=== PATIENT | female | born 1955 | race African-American/Black ===

== ENCOUNTER → 2024-07-08 11:12 | Outpatient (REF) | payer MEDICARE, SELFPAY | LOC: HWRCS 11:12 | PROVIDERS: ATTENDING PHYSICIAN Nurse Practitioner; FAMILY PHYSICIAN Family Medicine | DX: I10 Essential (primary) hypertension (principal); R60.0 Localized edema | CPT/HCPCS: 93306 ==

== ENCOUNTER 2025-04-05 11:53 | Emergency (ER) | payer MEDICARE, SELFPAY ==
[2025-04-05 11:59] VITALS: BP 153/80
[2025-04-05 12:38] LABS: Hematocrit 37.9 % (37.0-47.0); Hemoglobin 11.9 g/dL (12.0-16.0); Mean Corp Hgb Conc. 31.4 g/dL (33.0-37.0); Mean Corpuscular Volume 68.3 fL (81.0-99.0); Nucleated Red Blood Cells % 0 %; Platelet Count 374 10^3/uL (130-400); Red Cell Dist. Width 17.5 % (11.5-14.5)
[2025-04-05 13:04] LABS: ALT (SGPT) 20 U/L (0-35); AST (SGOT) 23 U/L (14-36); Albumin 4.6 g/dl (3.5-5.0); Alkaline Phosphatase 139 U/L (38-126); Blood Urea Nitrogen 12 mg/dl (7-17); Calcium 9.8 mg/dl (8.4-10.2); Carbon Dioxide 22 mmol/L (22-30); Chloride 108 mmol/L (98-107); Glucose 144 mg/dl (70-99); Potassium 4.1 mmol/L (3.5-5.1); Sodium 141 mmol/L (135-145); Total Protein 8.0 g/dl (6.3-8.2); eGFR 49.31
--- NOTE | 2025-04-05 13:29 | ED.GENMED ---
History of Present Illness
<Alphonso Kaur MD, Resident - Last Filed: 04/05/25 15:57>
General
Chief Complaint: Abdominal Pain
Source: patient
Exam Limitations: none
Time Seen by Provider: 04/05/25 13:04
Nursing documentation reviewed up to this point in time: agreed with
History of Present Illness
History of Present Illness:
This is a 69-year-old female with known past medical history coronary artery disease, hypertension, hyperlipidemia, diverticulosis, history of diverticulitis, history of colitis, history of bowel obstruction, IBS, history of renal infection,
diabetes, presenting in the emergency department with complaints of abdominal pain. She informed me that on Saturday her blood sugar was on the lower side and she took some candy (smarties), after which she had a large watery bowel movement and
eventually experienced abdominal pain which spreads across the middle of her belly. She also reports some associated nausea but denies vomiting. She informed me that diarrhea resolved on its own however abdominal pain persist. She rates the pain
as 8/10. Pain increases in intensity with movement and certain upon lying down. She also admits to have urinary frequency but denies dysuria or any other urinary symptoms.
Patient admits that because of abdominal pain she did not eat or drink anything yesterday or today.
Denies any other changes in medications or medical conditions recently.
Past History
<Alphonso Kaur MD, Resident - Last Filed: 04/05/25 15:57>
Past History
ED Past Medical History: CAD, HTN, Hypercholesterolemia, NIDDM and Other (Diverticulitis, irritable bowel syndrome, history of bowel obstruction)
ED Past Surgical History: Appendectomy, Cardiac (Angioplasty with 5 stents), Gynecological (Tubal ligation) and Other (History of tubal ligation)
Social History
Tobacco: Non-smoker
Alcohol: None
Drug: None
Personal:
Living: with family
Employment: Employed
Family History
Family History: Diabetes and Hypertension
Review of Systems
<Alphonso Kaur MD, Resident - Last Filed: 04/05/25 15:57>
Review of Systems
Allergies reviewed?: Yes
All Other Systems: ROS reviewed and negative except as documented in HPI and ROS
Constitutional: Reports no symptoms
EENT: Reports no symptoms
Respiratory: Reports no symptoms
Cardiac: Reports no symptoms
ABD/GI: Reports abdominal pain and nausea; Denies vomiting or diarrhea
: Reports frequency; Denies dysuria, incontinence or difficulty voiding
Musculoskeletal: Reports no symptoms
Skin: Reports no symptoms
Neurological: Reports no symptoms
Endocrine: Reports no symptoms
Hematologic/Lymphatic: Reports no symptoms
Psychiatric: Reports no symptoms
Phy Exam
<Alphonso Kaur MD, Resident - Last Filed: 04/05/25 15:57>
General Physical Exam
General Presentation: well appearing and mild distress
General age: appears stated age
General Skin: warm
General Habitus: normal
General Mental: alert
Cardiovascular Exam
Cardiovascular Exam: regular rate/rhythm, no edema and no murmur
Pulmonary Exam
Pulmonary Exam: lungs clear, no respiratory distress, no crackles and no cough
Gastrointestinal Exam
Gastrointestinal Exam: normal bowel sounds, soft, no pulsatile mass, no cva tenderness and tender (Epigastric and umbilical)
Musculoskeletal Exam
Musculoskeletal Exam: full ROM
Course
<Alphonso Kaur MD, Resident - Last Filed: 04/05/25 15:57>
Orders/Labs/Results
Orders:
Orders
04/05/25 12:29
Complete Blood Count/With Diff Urgent
Comprehensive Metabolic Panel Urgent
Lipase Urgent
04/05/25 13:27
CT Abd/pelvis W Iv Cont Urgent
Comment:
Reason For Exam: abdominal pain
04/05/25 13:29
0.9% Sodium Chloride 1000 ml [Nss] 1,000 ml IV BOLUS
Famotidine [Pepcid] 20 mg IV NOW STA
Morphine Sulfate 2 mg IV NOW STA
Ondansetron Injectable [Zofran] 4 mg IV NOW STA
04/05/25 13:45
Urinalysis Reflex To Culture Urgent
Date Specimen was Collected: 04/05/25
Time Specimen was Collected: 13:41
Urine Microscopic Reflex Cult Urgent
04/05/25 15:32
Encourage PO Hydration-Treatme ONCE
Abnormal Lab Results
04/05/25 04/05/25
12:29 13:45
WBC 12.9 H 10^3/uL
(4.8-10.8)
RBC 5.55 H 10^6/uL
(4.20-5.40)
Hgb 11.9 L g/dL
(12.0-16.0)
MCV 68.3 L fL
(81.0-99.0)
MCH 21.4 L pg
(27.0-31.0)
MCHC 31.4 L g/dL
(33.0-37.0)
RDW 17.5 H %
(11.5-14.5)
Absolute Neuts (auto) 10.2 H 10^3/uL
(1.4-6.5)
Absolute Monos (auto) 1.0 H 10^3/uL
(0.1-0.6)
Neutrophils % 78.8 H %
(42.2-75.2)
Lymphocytes % 12.2 L %
(20.5-51.1)
Chloride 108 H mmol/L
(98-107)
Creatinine 1.2 H mg/dL
(0.6-1.0)
Glucose 144 H mg/dl
(70-99)
Alkaline Phosphatase 139 H U/L
(38-126)
Lipase 337 H U/L
(23-300)
Urine Ketones 2+ A
(Negative)
Ur Occult Blood Reflex 2+ A
(Negative)
Urine Bacteria (Reflex) Few A
(Negative)
Urine Glucose 1+ A
(Negative)
Urine Albumin (Reflex) 3+ A
(Neg - Trace)
04/05/25 12:29
04/05/25 12:29
Vital Signs
Initial and Last Documented VS:
Initial Vital Signs
Temp Pulse Resp BP Pulse Ox
98.0 F 57 20 153/80 99
04/05/25 11:59 04/05/25 11:59 04/05/25 11:59 04/05/25 11:59 04/05/25 11:59
Last Documented Vital Signs
Temp Pulse Resp BP Pulse Ox
98.0 F 57 20 153/80 99
04/05/25 11:59 04/05/25 11:59 04/05/25 11:59 04/05/25 11:59 04/05/25 13:29
Isadoralt;Lizett Cowart, - Last Filed: 04/05/25 16:04>
Orders/Labs/Results
Orders:
Orders
04/05/25 12:29
Complete Blood Count/With Diff Urgent
Comprehensive Metabolic Panel Urgent
Lipase Urgent
04/05/25 13:27
CT Abd/pelvis W Iv Cont Urgent
Comment:
Reason For Exam: abdominal pain
04/05/25 13:29
0.9% Sodium Chloride 1000 ml [Nss] 1,000 ml IV BOLUS
Famotidine [Pepcid] 20 mg IV NOW STA
Morphine Sulfate 2 mg IV NOW STA
Ondansetron Injectable [Zofran] 4 mg IV NOW STA
04/05/25 13:45
Urinalysis Reflex To Culture Urgent
Date Specimen was Collected: 04/05/25
Time Specimen was Collected: 13:41
Urine Microscopic Reflex Cult Urgent
04/05/25 15:32
Encourage PO Hydration-Treatme ONCE
Abnormal Lab Results
04/05/25 04/05/25
12:29 13:45
WBC 12.9 H 10^3/uL
(4.8-10.8)
RBC 5.55 H 10^6/uL
(4.20-5.40)
Hgb 11.9 L g/dL
(12.0-16.0)
MCV 68.3 L fL
(81.0-99.0)
MCH 21.4 L pg
(27.0-31.0)
MCHC 31.4 L g/dL
(33.0-37.0)
RDW 17.5 H %
(11.5-14.5)
Absolute Neuts (auto) 10.2 H 10^3/uL
(1.4-6.5)
Absolute Monos (auto) 1.0 H 10^3/uL
(0.1-0.6)
Neutrophils % 78.8 H %
(42.2-75.2)
Lymphocytes % 12.2 L %
(20.5-51.1)
Chloride 108 H mmol/L
(98-107)
Creatinine 1.2 H mg/dL
(0.6-1.0)
Glucose 144 H mg/dl
(70-99)
Alkaline Phosphatase 139 H U/L
(38-126)
Lipase 337 H U/L
(23-300)
Urine Ketones 2+ A
(Negative)
Ur Occult Blood Reflex 2+ A
(Negative)
Urine Bacteria (Reflex) Few A
(Negative)
Urine Glucose 1+ A
(Negative)
Urine Albumin (Reflex) 3+ A
(Neg - Trace)
04/05/25 12:29
04/05/25 12:29
Vital Signs
Initial and Last Documented VS:
Initial Vital Signs
Temp Pulse Resp BP Pulse Ox
98.0 F 57 20 153/80 99
04/05/25 11:59 04/05/25 11:59 04/05/25 11:59 04/05/25 11:59 04/05/25 11:59
Last Documented Vital Signs
Temp Pulse Resp BP Pulse Ox
98.0 F 57 20 153/80 99
04/05/25 11:59 04/05/25 11:59 04/05/25 11:59 04/05/25 11:59 04/05/25 13:29
<Alphonso Kaur MD, Resident - Last Filed: 04/05/25 15:57>
MDM/Problems Addressed
Differential Diagnosis Includes:
Viral gastritis vs Colitis vs pancreatitis vs diverticulitis vs UTI vs less likely renal colic vs less likely biliary colic
MDM/Problems Addressed:
Will get CBC, CMP, lipase.
CBC with leukocytosis of 12.9. CMP with creatinine of 1.2(around baseline). Lipase pending.
Will get CT abdomen/pelvis with IV contrast.
1 L NS bolus.
IV Meds: 4 mg Zofran, Pepcid 20 mg, morphine 2mg.
update: Lipase elevated to 337, UA with 2+ ketones, 2+ urine occult blood, few bacteria, 3+ urine albumin.
Patient feeling significant improvement in pain and resting comfortably in bed.
Will await the CT results for further disposition.
update:
CT shows mild diverticulosis. No evidence of acute diverticulitis. No acute inflammatory process within the abdominal pelvis. No evidence of bowel obstruction. No obstructive uropathy. Renal cyst with slight increase size. Mild fatty
infiltration of the liver. There are some tiny nodules at the right lung base which have been seen previously and have remained stable, supporting a benign etiology.
will trial PO.
Patient unable to follow-up with solid and liquid without any pain, nausea. Patient seen with patient to discharge home.recommended follow-up with PCP within 1 week.
She is aware if she develops any fevers or chills, any new symptoms, or any worsening symptoms she should come back. She voices understanding
Chronic conditions affecting care: DM, HTN and CAD
<Alphonso Kaur MD, Resident - Last Filed: 04/05/25 15:57>
*Pulse Oximetry
SaO2: 99
Oxygen Mode of Delivery: Room air
Patient hypoxic: no
*Critical Care Note
Total Time (30-74mins, 75-104mins- exclusive of procedures): Not Applicable
ED Attending Note
<Alphonso Kaur MD, Resident - Last Filed: 04/05/25 15:57>
-
Portions of this chart may have been created with voice recognition software.� Occasional wrong word or��sound alike� substitutions may have occurred due to the inherent limitations of voice recognition software.
<Lizett Cowart DO - Last Filed: 04/05/25 16:04>
ED Attending Note
Patient seen and examined by attending physician: Yes
I performed the substantive portion of visit, reviewed & personally made and approve the management plan that is documented in note by myself or KENDALL.: Yes
I performed a history and physical exam of patient and discussed management with resident, I reviewed resident's note and agree with documented findings and plan of care.: Yes
ED Attending Note:
69-year-old female presents to the ER for evaluation of poor appetite over the past 2 to 3 days along with upper abdominal discomfort. No fevers. No prior history of similar symptoms. Vital signs reviewed, patient is awake, mucous membranes
moist, alert, feeling much better after medications administered in the emergency department, abdomen is soft with mild pain on palpation in left lower quadrant, no guarding or rebound, extremities without edema, GCS is 15. I reviewed all test
results with the resident physician and patient-no evidence for acute worrisome process seen on CT scan. I discussed with patient possible etiology of symptoms related to gastritis, gastroenteritis, early pancreatitis, or other etiology. Patient
was able to tolerate p.o. and felt comfortable with plan for discharge home, for close outpatient follow-up with primary care physician. She is given prescription Zofran and Pepcid. She had no questions prior to leaving department.
Discharge Plan
Departure
Patient Disposition: Home (Routine Discharge)
Date of Disposition: 04/05/25
Time of Disposition: 15:51
Patient with high blood pressure during this ER visit?: Yes
Condition: Good
Discharge Problem:
Gastritis
Instructions: Gastritis (DC), Abdominal Pain, BLOOD PRESSURE
Prescriptions:
New
famotidine [Pepcid] 20 mg tablet
20 mg PO DAILY Qty: 14 0RF
Rx Instructions:
Take 1 tablet by mouth daily
ondansetron HCl 4 mg tablet
4 mg PO Q12H PRN (Reason: nausea and vomiting) Qty: 14 0RF
Rx Instructions:
Take 1 tablet by mouth as needed for nausea.
No Action
amlodipine 5 MG tablet
5 mg PO DAILY
insulin lispro [Humalog U-100 Insulin] 100 UNIT/ML solution
12 - 15 unit SQ AC
ergocalciferol (vitamin D2) 50,000 UNITS capsule
50,000 units PO MO
clopidogrel 75 MG tablet
75 mg PO DAILY Qty: 90 3RF
aspirin 81 MG tablet,chewable
81 mg PO DAILY 0RF
ezetimibe 10 MG tablet
10 mg PO DAILY Qty: 90 3RF
chlorthalidone 25 mg Tablet
12.5 mg PO DAILY
calcium carbonate 600 mg calcium (1,500 mg) Tablet
600 mg PO DAILY
rosuvastatin 40 mg Tablet
40 mg PO HS
insulin glargine [Lantus Solostar U-100 Insulin] 100 unit/mL (3 mL) Insulin Pen
35 unit SC HS
Repatha SureClick 140 mg/mL pen injector
140 mg SC Q14D
Trulicity 3 mg/0.5 mL Pen Injector
3 mg SC RACHEL
ferrous sulfate 325 mg (65 mg iron) Tablet
325 mg PO DAILY
carvedilol 12.5 mg Tablet
6.25 mg PO BID 30 Days Qty: 30 0RF
isosorbide mononitrate 30 mg Tablet Extended Release 24 Hr
30 mg PO DAILY 30 Days Qty: 30 0RF
Referrals:
Henok Mcfadden MD [Family Provider, Family Practice] - Follow up in 1 week
Activity Restrictions/Additional Instructions:
You were seen in the [facility] emergency department today with concerns of abdominal pain. While you were at the ER we performed blood work including CBC which showed mild elevation of WBCs, complete metabolic profile which
showed slight elevation of creatinine to 1.2. Lipase which was elevated to 337(normal range up to 300). CT abdomen pelvis shows mild diverticulosis. No evidence of acute diverticulitis. No acute inflammatory process within the abdominal pelvis.
No evidence of bowel obstruction. No obstructive uropathy. Renal cyst with slight increase size. Mild fatty infiltration of the liver. There are some tiny nodules at the right lung base which have been seen previously and have remained stable,
supporting a benign etiology. During your stay at the hospital you received 1 L of normal saline, IV 4 mg of Zofran, IV Pepcid 20 mg, IV morphine 2 mg. Given significant improvement in your symptoms you had a trial of oral intake. You were able
to tolerate p.o. solids and liquids without any pain, nausea or vomiting.
I have prescribed Zofran 4 mg tablets which she can use as needed for nausea. Additionally I also sent a prescription of Pepcid 20mg which you can use to avoid acid reflux.
Please follow-up with your family doctor within 1 week. Please return to the emergency department if you develop fever or chills or any new symptoms or worsening of the current symptoms.
Interventions
Interventions:
*Risk Screen - Suicide Last Done: 04/05/25 13:53
*General Assessment Last Done: 04/05/25 11:59
*Neglect/Abuse Screening Last Done: 04/05/25 13:53
*ED- Fall Risk Assessment Last Done: 04/05/25 13:53
[id number] Assessment Last Done: 04/05/25 13:53
Discharge Date and Time
Print Language: ROMANIAN
[2025-04-05 13:33] LABS: Lipase 337 U/L (23-300)
[2025-04-05] MEDS: PEPCID 20 MG IV (13:44)
[2025-04-05] MEDS: NSS 1000 IV (13:44)
[2025-04-05] MEDS: MORPHINE SULFATE 2 MG IV (13:45)
[2025-04-05] MEDS: ZOFRAN 4 MG IV (13:45)
[2025-04-05 13:56] LABS: Urine Character Clear (Clear)
[2025-04-05 14:21] LABS: Urine Red Blood Cell 0-2 /HPF (0-2)
[2025-04-05 16:00] VITALS: BP 145/74
== END 2025-04-05 16:06 | disposition home or self-care (01) ==
LOC: EMR 11:53
PROVIDERS: Emergency Medicine; EMERGENCY PHYSICIAN Emergency Medicine; FAMILY PHYSICIAN Family Medicine
DX: K29.70 Gastritis, unspecified, without bleeding (principal); E11.9 Type 2 diabetes mellitus without complications; E78.00 Pure hypercholesterolemia, unspecified; I10 Essential (primary) hypertension; I25.10 Atherosclerotic heart disease of native coronary artery without angina pectoris; Z95.5 Presence of coronary angioplasty implant and graft; Z90.49 Acquired absence of other specified parts of digestive tract
CPT/HCPCS: 99284; 96374; 96375; 96361; 74177; 80053; 81003; 81015; 83690; 85025; Q9967

== ENCOUNTER → 2025-06-10 10:09 | Outpatient (REF) | payer MEDICARE, SELFPAY | LOC: WDC 10:09 | PROVIDERS: ATTENDING PHYSICIAN Nurse Practitioner Adult Health; FAMILY PHYSICIAN Family Medicine | DX: N64.52 Nipple discharge (principal) | CPT/HCPCS: 76642; 77062; 77066 ==

== ENCOUNTER 2025-06-18 06:13 | Day surgery (SDC) | payer MEDICARE, SELFPAY ==
--- NOTE | 2025-06-16 12:32 | PTCARENOTE ---
Patients 11/13/24 ECG abnormal- reviewed by Dr. Turner- no additional interventions required
[2025-06-16 14:15] VITALS: BMI 33.7
[2025-06-18 08:46] VITALS: BMI 33.7
[2025-06-18 09:06] VITALS: BMI 33.7
[2025-06-18 09:13] VITALS: BP 132/78
[2025-06-18 09:14] LABS: Glucose - Point of Care 105 mg/dl (70-99)
[2025-06-18] MEDS: TYLENOL 1000 MG PO (09:28)
[2025-06-18] MEDS: NORMOSOL-R/PLASMALYTE-A 1000 IV (09:30)
--- NOTE | 2025-06-18 09:58 | PTCARENOTE ---
Report given to Ivett PLEITEZ.
--- NOTE | 2025-06-18 11:57 | W.IMMPOSTOP ---
Addendum entered and electronically signed by Anabelle Ngo MD 06/18/25 12:31:
Procedure performed: Exploration right nipple areolar complex and excision central duct
Anesthesia type: TIVA
Specimen/cultures: Central ducts right breast, margins, intraductal mass
Estimated blood loss: 4 cc
Complication: None
Original Note:
Surgical Immed Post Op Note
-
Primary Surgeon: Jeni
Assisting Surgeon: none
Pre-op Diagnosis: pathologic discharge right breast
Post-op Diagnosis: same
Procedure Performed:
Anesthesia Type:
Specimen / Cultures:
Estimated Blood Loss:
Complications:
Operative Findings:
[2025-06-18 12:01] VITALS: BP 105/58
[2025-06-18 12:10] LABS: Glucose - Point of Care 108 mg/dl (70-99)
[2025-06-18 12:15] VITALS: BP 120/65
[2025-06-18 12:30] VITALS: BP 125/62
--- NOTE | 2025-06-18 12:31 | OR.RPT ---
Operative Report
Operative Report
The patient is a 70-year-old female who presented with pathologic bloody discharge of the right nipple areolar complex. Imaging revealed central duct masses located superficially in the immediate retroareolar region. She presents now for
exploration and excision of the involved central duct.
The patient presented to the same-day surgical services on the day of the procedure and was prepped. She verified site and procedure. DVT and antibiotic prophylaxis was provided.
She was taken to the operating room and in the supine position intravenous sedation was delivered. The right breast was prepped and draped in usual sterile fashion. All tissues were anesthetized with 1% lidocaine plain. An inferior circumareolar
incision was made sharply with the blade and the nipple flap was elevated using the cautery. The large dilated duct was encountered and transected. Both ends were ligated with 3-0 silk. An intraductal mass had extruded from the distal opening and
was sent under separate cover. Wide resection of this duct was performed using the cautery. Time out of body was noted and the specimen was oriented for the pathologist and sent for permanent analysis. Additional margins were harvested for
permanent analysis from the posterior, medial, superior, lateral, and inferior dimensions and sent under separate cover.
Hemostasis was maintained with the cautery. Marcaine 0.5% plain was instilled into all tissues and the wound was closed using simple interrupted 3-0 plain on deep intermediate and subcutaneous tissue and a running subcuticular 4-0 Monocryl was used
to close skin. Surgical glue and sterile compressive dressing were applied
(04005)
[2025-06-18 12:45] VITALS: BP 130/71
== END 2025-06-18 13:08 | disposition home or self-care (01) ==
LOC: SDS 06:13
PROVIDERS: ATTENDING PHYSICIAN Surgery; FAMILY PHYSICIAN Family Medicine
DX: N64.52 Nipple discharge (principal); D24.1 Benign neoplasm of right breast
CPT/HCPCS: 19110; 82962; 88305; 88307; 88341; 88342

== ENCOUNTER 2025-06-19 07:05 | Inpatient (IN) | payer MEDICARE, SELFPAY ==
[2025-06-19] VITALS (7 sets, daily range): BP systolic 136–173; BP diastolic 63–96; BMI 34.2; BMI 33.5
[2025-06-19] MEDS: ZOFRAN 4 MG IV ×2 (02:42→04:40)
[2025-06-19 02:47] LABS: Hematocrit 35.2 % (37.0-47.0); Hemoglobin 11.0 g/dL (12.0-16.0); Mean Corp Hgb Conc. 31.3 g/dL (33.0-37.0); Mean Corpuscular Volume 68.3 fL (81.0-99.0); Nucleated Red Blood Cells % 0 %; Platelet Count 339 10^3/uL (130-400); Red Cell Dist. Width 16.7 % (11.5-14.5)
--- NOTE | 2025-06-19 02:50 | ED.GENMED ---
History of Present Illness
General
Chief Complaint: Post Operative Problem(s)
Source: patient and previous hospital records (Day surgery yesterday, June 18 for right breast lumpectomy.)
Exam Limitations: none
Time Seen by Provider: 06/19/25 02:22
Nursing documentation reviewed up to this point in time: agreed with
History of Present Illness
History of Present Illness:
The patient is a 70-year-old female with a recent history of a right breast lumpectomy performed yesterday, following episodes of bloody nipple discharge. She was feeling well post-operatively until approximately 11:30 PM today when she developed
nausea and began vomiting, experiencing episodes three to four times. This was accompanied by severe upper abdominal pain. She describes a prior similar sensation correlated with past episodes of bowel obstruction. The patient reported explosive
loose bowel movements initially but no further diarrhea since. She has experienced previous bowel obstructions, though the etiology was not clearly identified, and they resolved on their own. She reports a history of diverticulitis as well as
colitis but no confirmed inflammatory bowel disease like ulcerative colitis or Crohns. She has not undergone abdominal surgery. She has had several colonoscopies in the past, follows with Dr. Gutierrez and does not have a documented history of
inflammatory bowel diseases.
No close contacts with similar symptoms. No recent travel.
No current antibiotic use.
She denies chest pain or coughing or shortness of breath.
Past History
Past History
ED Past Medical History: CAD, HTN, Hypercholesterolemia, NIDDM and Other (Diverticulitis, irritable bowel syndrome, history of bowel obstruction)
ED Past Surgical History: Appendectomy, Cardiac (Angioplasty with 5 stents), Gynecological (Tubal ligation; right breast lumpectomy June 18, 2025) and Other (History of tubal ligation)
Social History
Tobacco: Non-smoker
Alcohol: None
Drug: None
Personal:
Living: with family
Employment: Employed
Family History
Family History: Diabetes and Hypertension
Phy Exam
Physical Exam
Physical Exam:
GENERAL: 70-year-old woman appears her stated age, awake and alert, pleasant, appears in no acute distress. Recently received Zofran for nausea. is accompanying.
EYE: anicteric
NECK: Supple, nontender, no meningismus, no significant adenopathy.
ENT: oral mucosa is moist. No rhinorrhea.
CARDIAC: Regular rate and rhythm. no murmur. Right breast dressings are dry and intact.
LUNGS: Clear breath sounds bilaterally, no acute respiratory distress, no wheezes/rales/rhonchi
ABDOMEN: Soft, nondistended, mild to moderate tenderness epigastric region as well as mild generalized tenderness throughout the abdomen, no r/g, no cvat. Mildly hypoactive bowel sounds.
NEUROLOGICAL: Alert and oriented x3, no focal neuro deficits.
SKIN: Warm and dry, normal color, skin intact. No rash.
MUSCULOSKELETAL: No C/C/E. peripheral pulses are full and equal b/l. No palpable tenderness.
PSYCH: Normal and appropriate interaction.
Course
Orders/Labs/Results
Orders:
Orders
06/19/25 02:40
Ondansetron Injectable [Zofran] 4 mg .ROUTE .[facility]
06/19/25 02:41
Complete Blood Count/With Diff Urgent
Comprehensive Metabolic Panel Urgent
Lactic Acid Urgent
Lipase Urgent
06/19/25 02:42
Ondansetron Injectable [Zofran] 4 mg IV NOW STA
06/19/25 02:49
CT Abd/pelvis W Iv Cont Urgent
Comment:
Reason For Exam: gen upper abd pain N/V/D
0.9% Sodium Chloride 1000 ml [Nss] 1,000 ml IV BOLUS
HYDROmorphone [Dilaudid] 0.5 mg IV NOW STA
06/19/25 04:00
Urinalysis Reflex To Culture Urgent
Date Specimen was Collected: 06/19/25
Time Specimen was Collected: 03:52
06/19/25 04:37
Ondansetron Injectable [Zofran] 4 mg IV NOW STA
06/19/25 06:17
0.9% Sodium Chloride 500 ml [Nss] 500 ml IV BOLUS
HYDROmorphone [Dilaudid] 0.5 mg IV NOW STA
Piperacillin/Tazo 3.375 Gram [Zosyn] 3.375 gram in 50 ml IV NOW
Abnormal Lab Results
06/19/25 06/19/25
02:41 04:00
WBC 16.5 H 10^3/uL
(4.8-10.8)
Hgb 11.0 L g/dL
(12.0-16.0)
Hct 35.2 L %
(37.0-47.0)
MCV 68.3 L fL
(81.0-99.0)
MCH 21.4 L pg
(27.0-31.0)
MCHC 31.3 L g/dL
(33.0-37.0)
RDW 16.7 H %
(11.5-14.5)
Abs Immat Gran (auto) 0.1 H 10^3/uL
(0-0.05)
Absolute Neuts (auto) 15.1 H 10^3/uL
(1.4-6.5)
Absolute Lymphs (auto) 0.7 L 10^3/uL
(1.2-3.4)
Immature Gran % 0.9 H %
(0-0.5)
Neutrophils % 91.9 H %
(42.2-75.2)
Lymphocytes % 4.4 L %
(20.5-51.1)
Chloride 110 H mmol/L
(98-107)
Carbon Dioxide 21 L mmol/L
(22-30)
BUN 19 H mg/dl
(7-17)
Glucose 261 H mg/dl
(70-99)
Lactic Acid 2.4 H mmol/L
(0.7-2.0)
Alkaline Phosphatase 133 H U/L
(38-126)
Urine Glucose 3+ A
(Negative)
06/19/25 02:41
06/19/25 02:41
Vital Signs
Initial and Last Documented VS:
Initial Vital Signs
Temp Pulse Resp BP Pulse Ox
97.6 F 64 22 171/96 100
06/19/25 02:15 06/19/25 02:15 06/19/25 02:15 06/19/25 02:15 06/19/25 02:15
Last Documented Vital Signs
Temp Pulse Resp BP Pulse Ox
97.6 F 63 17 167/84 100
06/19/25 02:15 06/19/25 05:00 06/19/25 05:00 06/19/25 05:00 06/19/25 02:52
MDM/Problems Addressed
Differential Diagnosis Includes:
The Differential Diagnosis includes, in no particular order and is not limited to:
1. Intestinal Obstruction
2. Gastroenteritis
3. Luminal Stricture
4. Adverse Reaction to Surgery or Anesthesia
5. Pancreatitis
6. Peptic Ulcer Disease
7. Cholecystitis
8. Appendicitis
9. Diverticulitis
10. Acute Mesenteric Ischemia
MDM/Problems Addressed:
Acute nausea, vomiting, diarrhea accompanied with abdominal pain.
She is postop day 1 status post right breast lumpectomy.
She has been given Zofran for nausea, will give a small IV dose of Dilaudid for abdominal pain and initiate IV fluids.
Will check labs including lactic acid and will plan for CT abdomen pelvis with IV contrast.
Chronic conditions affecting care:
Reports prior history of irritable bowel disease, bowel obstructions, colitis, diverticulitis.
Chronic conditions affecting care: DM, HTN and CAD
*Radiology
Radiology exam reviewed: radiology read reviewed
*Pulse Oximetry
SaO2: 100
Oxygen Mode of Delivery: Room air
Patient hypoxic: no
*Critical Care Note
Total Time (30-74mins, 75-104mins- exclusive of procedures): Not Applicable
Update Note
Update Note:
06:15
Patient continues with intermittent but moderate nausea, continues with moderate crampy abdominal pain.
Labs are remarkable for elevated white blood cell count of 16.5, mild but stable anemia. Mildly elevated lactic acid of 2.4. Moderately elevated random glucose of 260 but no acidosis on electrolytes. Normal LFTs, normal lipase.
CAT scan shows no bowel obstruction but mild wall thickening of the transverse and descending colon which is nonspecific but concerning for mild colitis. No free air nor free fluid.
Due to continued nausea and moderate abdominal pain, elevated white blood cell count and lactic acid, concern for acute colitis. At this point patient unable to tolerate oral fluids, requires continued IV fluids, will continue antiemetics and pain
medications, will initiate IV antibiotic for potential infectious colitis and will admit to hospitalist service.
ED Attending Note
-
Portions of this chart may have been created with voice recognition software.� Occasional wrong word or��sound alike� substitutions may have occurred due to the inherent limitations of voice recognition software.
Discharge Plan
Departure
Patient Disposition: Admit
Date of Disposition: 06/19/25
Time of Disposition: 06:20
Admit to: Med/Surg
Admit to doctor: Michele
Presentation/result/management discussed w/ accepting MD/DO: Hospitalist
Discharge Problem:
Acute colitis, Acute nausea with nonbilious vomiting, Type 2 diabetes mellitus with hyperglycemia, Status post right breast biopsy
Prescriptions:
No Action
amlodipine 5 MG tablet
5 mg PO DAILY
insulin lispro [Humalog U-100 Insulin] 100 UNIT/ML solution
0 - 15 unit SQ AC
Patient Comments:
*took 12 units at 2000
ergocalciferol (vitamin D2) 50,000 UNITS capsule
50,000 units PO MO
clopidogrel 75 MG tablet
75 mg PO DAILY Qty: 90 3RF
aspirin 81 MG tablet,chewable
81 mg PO DAILY 0RF
ezetimibe 10 MG tablet
10 mg PO DAILY Qty: 90 3RF
calcium carbonate 600 mg calcium (1,500 mg) Tablet
600 mg PO DAILY
insulin glargine [Lantus Solostar U-100 Insulin] 100 unit/mL (3 mL) Insulin Pen
26 unit SC HS
Patient Comments:
*took 20 units last HS at 2300*
Repatha SureClick 140 mg/mL pen injector
140 mg SC Q2W
ferrous sulfate 325 mg (65 mg iron) Tablet
325 mg PO DAILY
isosorbide mononitrate 30 mg Tablet Extended Release 24 Hr
30 mg PO DAILY 30 Days Qty: 30 0RF
carvedilol 12.5 mg Tablet
12.5 mg PO BID
rosuvastatin 20 mg Tablet
20 mg PO HS
Ozempic 2 mg/dose (8 mg/3 mL) Pen Injector
2 mg SC QWEEK
Referrals:
Henok Mcfadden MD [Family Provider, Family Practice]
Interventions
Interventions:
*Risk Screen - Suicide Last Done: 06/19/25 02:15
*General Assessment Last Done: 06/19/25 02:15
*Neglect/Abuse Screening Last Done: 06/19/25 02:15
*ED- Fall Risk Assessment Last Done: 06/19/25 02:15
*ED COVID-19 Vaccine History Last Done: 06/19/25 02:15
ED-Skin Assessment Last Done: 06/19/25 03:01
Discharge Date and Time
Print Language: KYRGYZ
[2025-06-19] MEDS: DILAUDID 0.5 MG IV ×5 (02:58→22:19)
[2025-06-19] MEDS: NSS 1000 IV (02:59)
[2025-06-19 03:11] LABS: ALT (SGPT) 22 U/L (0-35); AST (SGOT) 26 U/L (14-36); Albumin 4.7 g/dl (3.5-5.0); Alkaline Phosphatase 133 U/L (38-126); Blood Urea Nitrogen 19 mg/dl (7-17); Calcium 9.8 mg/dl (8.4-10.2); Carbon Dioxide 21 mmol/L (22-30); Chloride 110 mmol/L (98-107); Estimated Creatinine Clearance 71 ml/min; Glucose 261 mg/dl (70-99); Lipase 241 U/L (23-300); Potassium 4.2 mmol/L (3.5-5.1); Sodium 141 mmol/L (135-145); Total Protein 8.2 g/dl (6.3-8.2); eGFR > 60.00
[2025-06-19 04:21] LABS: Urine Character Clear (Clear)
--- NOTE | 2025-06-19 06:47 | HPS.HSE ---
Family Physician
-
Family Physician: Henok Mcfadden
Chief Complaint
-
Abd Pain, N/V/D
History of Present Illness
Patient is a 70y F with PMH significant for ASCVD, hypertension and DM-II who presents to ED complaining of abdominal pain with N/V/D. Patient underwent R breast exploration and excision of intraductal mass(es) on 06/18/[address] Ngo. She
felt well following surgery. She had omelet / pancake for lunch. For dinner she had [place] food. Around 11 PM while lying in bed, she developed sharp epigastric abdominal pain. Patient states that she had crampy abdominal pain followed by an
'explosive' stool that was somewhat loose but not watery. She developed nausea and had multiple episodes of emesis over the next 30-45 minutes. Her pain transiently improved following BM or emesis - but returned shortly thereafter. With
persistent symptoms patient presented to the ED for further evaluation.
Patient had one additional episode of non-bloody emesis here in the ED.
She continues to complain of abdominal pain that is somewhat migratory.
No fevers / chills. No chest pain / SOB. No issues / complaints regarding surgical site / dressings.
Medical History
Past Medical History
Past Medical History: Reports Other
Additional Past Medical History:
ASCVD
Hypertension
DM-II
Thalassemia
Iron Deficiency Anemia
GERD
Diverticular Disease
MAHAD
Obesity
Past Surgical History: Reports Other
Additional Past Surgical History:
Right Breast Exploration and Excision of Intraductal Masses (x 3) - 06/18/25
PTCA with Stent
Appendectomy
Tubal Ligation
Breast Biopsy (benign)
Cataracts
Social History
Tobacco: Non-smoker
Alcohol: None
Drug: None
Family History
Family History: Not pertinent
Allergies / Home Medications
Allergies reflects when Allergies were last updated in [employer]
Home Medications with original date entered in [employer]
Allergy/Medication List:
Allergies
Allergy/AdvReac Type Severity Reaction Status Date / Time
lisinopril Allergy Swelling Verified 06/19/25 02:15
Home Medications
amlodipine 5 mg tablet 5 mg PO DAILY Blood pressure 11/16/13
insulin lispro 100 unit/mL subcutaneous solution (Humalog U-100 Insulin) 0 - 15 unit SQ AC Diabetes 02/08/15
ergocalciferol (vitamin D2) 1,250 mcg (50,000 unit) capsule 50,000 units PO MO Supplement 08/10/19
aspirin 81 mg chewable tablet 81 mg PO DAILY 08/12/19
clopidogrel 75 mg tablet 75 mg PO DAILY #90 tabs 08/12/19
ezetimibe 10 mg tablet 10 mg PO DAILY #90 tabs 08/12/19
calcium carbonate 600 mg PO DAILY Supplement 05/16/22
evolocumab 140 mg/mL subcutaneous pen injector (Repatha SureClick) 140 mg SC Q2W High cholesterol 05/16/22
insulin glargine 100 unit/mL (3 mL) subcutaneous pen (Lantus Solostar U-100 Insulin) 26 unit SC HS Diabetes 05/16/22
ferrous sulfate 325 mg (65 mg iron) tablet 325 mg PO DAILY Supplement 11/26/22
isosorbide mononitrate 30 mg tablet,extended release 24 hr 30 mg PO DAILY 30 days #30 tabs 11/28/22
carvedilol 12.5 mg tablet 12.5 mg PO BID 06/15/25
rosuvastatin 20 mg tablet 20 mg PO HS 06/15/25
semaglutide 2 mg/dose (8 mg/3 mL) subcutaneous pen injector (Ozempic) 2 mg SC QWEEK 06/15/25
Review of Systems
-
History Source: Patient
A 12 point ROS was completed and negative except as noted: Yes
Constitutional: Denies Fever or Chills
Respiratory: Denies Cough or Trouble Breathing
Cardiac: Denies Chest Pain or Palpitations
Abdomen/GI: Reports Abdominal Pain, Nausea, Vomiting and Diarrhea; Denies Bloody Stools or Black Stools
: Reports Frequency; Denies Dysuria or Flank Pain
Musculoskeletal: Denies Joint Pain or Edema
Neurological: Denies Dizzy or Headache
Physical Exam
Vital Signs
Vital Signs
Temp Pulse Resp BP Pulse Ox
97.6 F 63 17 167/84 100
06/19/25 02:15 06/19/25 05:00 06/19/25 05:00 06/19/25 05:00 06/19/25 02:52
Physical Exam
General: Other (70y F in no acute distress.)
HEENT: Moist mucous membranes and PERRLA
Respiratory: Clear; No Wheezes, Rales or Rhonchi
Cardiac: S1/S2 and Regular Rhythm; No Murmur
Breast: Other (Dressings in place R breast surgical site without discharge / strikethrough.)
GI: Other (Abdomen is soft. Bowel sounds are diminished throughout. Mild tenderness - most notable in the epigastric region. No rebound / guarding.)
Musculoskeletal: No Clubbing, No Cyanosis and No Edema
Neuro: AO x 3
Laboratory Results
-
06/19/25 02:41
06/19/25 02:41
Laboratory Results
Lactic Acid 2.4 mmol/L (0.7-2.0) H 06/19/25 02:41
Total Bilirubin 0.4 mg/dl (0.2-1.3) 06/19/25 02:41
AST 26 U/L (14-36) 06/19/25 02:41
ALT 22 U/L (0-35) 06/19/25 02:41
Alkaline Phosphatase 133 U/L (38-126) H 06/19/25 02:41
Lipase 241 U/L (23-300) 06/19/25 02:41
Impression/Plan
-
A/P: Patient is a 70y F with PMH significant for ASCVD, HTN and DM-II who presents to ED complaining of abdominal pain with N/V/D.
Gastroenteritis
Mild Lactic Acidosis
- Admit for further evaluation and treatment.
- Symptoms seem more c/w generalized gastroenteritis than colitis. Upper abdominal pain, persistent N/V and a single loose stool.
- ? food related.
- Supportive care with IVFs, antiemetics, pain control, etc.
- Repeat lactate to ensure improvement.
- Check stool studies if further diarrhea.
- Observe off of additional abx for now.
- Follow for clinical improvement.
- Monitor for fever, new or worsening symptoms, etc.
s/p R Breast Exploration and Intraductal Mass Excision 06/18/25
- Stable. No evidence of bleeding, discharge or other acute issue at surgical site.
- Local care. Follow-up with Dr. Ngo as planned.
- Follow-up pathology results when available.
ASCVD
- Stable. No chest pain or dyspnea.
- Continue current CV med regimen including DAPT, statin, etc.
Benign Hypertension
- Stable. Continue usual home med regimen with holding parameters.
DM-II
- Elevated glucose s/p recent surgery and with acute gastroenteritis.
- Continue basal insulin.
- Follow glucose and cover with SSI as needed.
- Update A1C.
Iron Deficiency Anemia
Thalassemia
- Stable. Hgb is at / near known baseline.
- Continue iron supplementation.
- Follow for any changes.
Obesity due to excess calories
- Affects all aspects of care.
- Encourage healthy diet and regular exercise with goal of weight loss.
- On Ozempic.
DVT Prophylaxis: SCDs
Code Status: Full
[2025-06-19] MEDS: ZOSYN 50 IV (07:06)
[2025-06-19] MEDS: NSS 500 IV (07:07)
[2025-06-19 10:39] LABS: Glucose - Point of Care 185 mg/dl (70-99)
[2025-06-19] MEDS: LR 1000 IV ×2 (10:52→17:15)
[2025-06-19] MEDS: PLAVIX 75 MG PO (10:53)
[2025-06-19] MEDS: NSS (PRESERVATIVE FREE) 10 ML IV (10:53)
[2025-06-19] MEDS: NORVASC 5 MG PO (10:53)
[2025-06-19] MEDS: LOW STRENGTH ASPIRIN 81 MG PO (10:53)
[2025-06-19] MEDS: PROTONIX IV 40 MG IV (10:53)
[2025-06-19] MEDS: COREG 12.5 MG PO ×2 (10:53→21:11)
[2025-06-19] MEDS: IMDUR (EXTENDED RELEASE) 30 MG PO (10:53)
[2025-06-19] MEDS: FEOSOL 325 MG PO (10:54)
[2025-06-19] MEDS: NOVOLOG FLEXPEN-MODERATE RESISTANCE 1 UNITS SC (10:55)
--- NOTE | 2025-06-19 10:55 | W.PN.HOSP.TC ---
Today's Communication/Plan
-
Antiemetics
IV fluids
Advance diet as tolerated
Assessment / Plan
Assessment / Plan
Gen-AAOx3, NAD
HEENT-NC, AT, anicteric, clear oral mm
Neck-supple
CV-reg, no M, +S1/S2
Lungs-clear B/L
Abd-soft, mild periumbilical tenderness without rebound or guarding, nondistended
Ext-no edema
Musculoskeletal-no cyanosis, clubbing
Skin-warm and dry
Neuro-grossly non-focal
Psych-calm, cooperative
Acute gastroenteritis -clinically improving. Continue clear liquid diet, advance as tolerated. Continue antiemetics, IV fluids.
Suspect foodborne illness given timing of onset after eating [place] food. Denies sick contacts, denies other ill family members. Denies travel.
Stool studies ordered. Denies bloody diarrhea. Last bowel movement was yesterday. Mild leukocytosis noted. Afebrile.
Mild lactic acidosis noted, repeat pending.
CT abdomen/pelvis noted.
No indication for antibiotics.
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 Follow-up with Dr. Ngo after discharge.
DM 2 with hyperglycemia -glucose 261 this morning.
At home she is on Lantus 26 units at bedtime, Humalog corrective scale, semaglutide 2 mg subcutaneously every week.
In the hospital she is on Lantus 20 units at bedtime, will lower corrective scale to low resistance.
Essential hypertension -blood pressure elevated. Resume home meds.
CAD -stable.
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 Hemoglobin stable.
MAHAD
Diverticulosis
Obesity due to excess calories
Full code
Anticipated Discharge: Within 24 hours
Subjective/Interval History
-
Date of Service: June 19, 2025
Patient seen and examined, overall starting to feel better. Mild nausea.
Objective Data
-
Labs:
Laboratory Results
06/19/25
02:41
WBC 16.5 H
Hgb 11.0 L
Hct 35.2 L
Plt Count 339
Sodium 141
Potassium 4.2
Chloride 110 H
Carbon Dioxide 21 L
BUN 19 H
Creatinine 0.9
Glucose 261 H
Calcium 9.8
Total Bilirubin 0.4
AST 26
ALT 22
Alkaline Phosphatase 133 H
Vital Signs:
Vital Signs
Temp Pulse Resp BP Pulse Ox
98.0 F 73 18 158/88 99
06/19/25 09:50 06/19/25 09:50 06/19/25 09:50 06/19/25 09:50 06/19/25 09:50
Review of Systems
-
History Source: Patient
All other systems: Reviewed and negative
[2025-06-19 13:48] LABS: Glucose - Point of Care 196 mg/dl (70-99)
[2025-06-19] MEDS: NOVOLOG FLEXPEN-LOW RESISTANCE 1 UNITS SC ×2 (13:49→18:16)
[2025-06-19 18:05] LABS: Glucose - Point of Care 184 mg/dl (70-99)
--- NOTE | 2025-06-19 19:09 | PTCARENOTE ---
patient tolerated clear liquid and had full liquids, did c/o some discomfort after and opted to have full liquid again at dinner. No nausea . will assess in am to advance diet.
[2025-06-19 21:54] LABS: Glucose - Point of Care 183 mg/dl (70-99)
[2025-06-19] MEDS: CRESTOR 20 MG PO (22:19)
[2025-06-19] MEDS: LANTUS 0.2 UNITS SC (22:21)
[2025-06-20] MEDS: LR 1000 IV (01:24)
[2025-06-20 07:31] VITALS: BP 157/77
[2025-06-20 08:09] LABS: Glucose - Point of Care 123 mg/dl (70-99)
[2025-06-20] MEDS: NOVOLOG FLEXPEN-LOW RESISTANCE SC ×3 (08:27→16:38)
[2025-06-20] MEDS: DILAUDID 0.5 MG IV ×2 (08:29→21:37)
[2025-06-20] MEDS: NSS (PRESERVATIVE FREE) 10 ML IV (08:30)
[2025-06-20] MEDS: PROTONIX IV 40 MG IV (08:30)
[2025-06-20] MEDS: NORVASC 5 MG PO (08:32)
[2025-06-20] MEDS: IMDUR (EXTENDED RELEASE) 30 MG PO (08:32)
[2025-06-20] MEDS: COREG 12.5 MG PO (08:32)
[2025-06-20] MEDS: PLAVIX 75 MG PO (08:32)
[2025-06-20] MEDS: FEOSOL 325 MG PO (08:32)
[2025-06-20] MEDS: LOW STRENGTH ASPIRIN 81 MG PO (08:33)
[2025-06-20 08:55] LABS: Hematocrit 34.5 % (37.0-47.0); Hemoglobin 11.1 g/dL (12.0-16.0); Mean Corp Hgb Conc. 32.2 g/dL (33.0-37.0); Mean Corpuscular Volume 69.1 fL (81.0-99.0); Platelet Count 313 10^3/uL (130-400); Red Cell Dist. Width 17.1 % (11.5-14.5)
[2025-06-20 09:13] LABS: ALT (SGPT) 18 U/L (0-35); AST (SGOT) 24 U/L (14-36); Albumin 4.2 g/dl (3.5-5.0); Alkaline Phosphatase 119 U/L (38-126); Blood Urea Nitrogen 11 mg/dl (7-17); Calcium 10.0 mg/dl (8.4-10.2); Carbon Dioxide 28 mmol/L (22-30); Chloride 107 mmol/L (98-107); Estimated Creatinine Clearance 79 ml/min; Glucose 141 mg/dl (70-99); Potassium 3.9 mmol/L (3.5-5.1); Sodium 141 mmol/L (135-145); Total Protein 7.4 g/dl (6.3-8.2); eGFR > 60.00
--- NOTE | 2025-06-20 09:17 | W.PN.HOSP.TC ---
Today's Communication/Plan
-
Stop IV fluids
Continue antiemetics
diet as tolerated
Assessment / Plan
Assessment / Plan
Gen-AAOx3, NAD
HEENT-NC, AT, anicteric, clear oral mm
Neck-supple
CV-reg, no M, +S1/S2
Lungs-clear B/L
Abd-soft, no significant tenderness, no guarding or rebound
Ext-no edema
Musculoskeletal-no cyanosis, clubbing
Skin-warm and dry
Neuro-grossly non-focal
Psych-calm, cooperative
Acute gastroenteritis -still with symptoms of nausea, but diarrhea resolved. Leukocytosis worse today, 23,000. Afebrile. Looks nontoxic.
Suspect foodborne illness given timing of onset after eating [place] food. Denies sick contacts, denies other ill family members. Denies travel.
Stool studies ordered. Denies bloody diarrhea. No bowel movements in the hospital.
Lactic acidosis resolved.
CT abdomen/pelvis noted.
No indication for antibiotics.
Clear liquid diet today and advance as tolerated. Will stop IV fluids given complaints of polyuria, nocturia.
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 Follow-up with Dr. Ngo after discharge.
DM 2 with hyperglycemia -glucose 141 this morning.
At home she is on Lantus 26 units at bedtime, Humalog corrective scale, semaglutide 2 mg subcutaneously every week.
In the hospital she is on Lantus 20 units at bedtime, will lower corrective scale to low resistance.
Essential hypertension -stable.
CAD -stable.
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 Hemoglobin stable.
MAHAD
Diverticulosis
Obesity due to excess calories
Full code
Anticipated Discharge: Within 24 hours
Subjective/Interval History
-
Date of Service: June 20, 2025
Patient seen and examined. Did not sleep well due to polyuria, mild bladder discomfort. Mild nausea. Denies diarrhea.
Objective Data
-
Labs:
Laboratory Results
06/20/25
08:32
WBC 23.0 H
Hgb 11.1 L
Hct 34.5 L
Plt Count 313
Sodium 141
Potassium 3.9
Chloride 107
Carbon Dioxide 28
BUN 11
Creatinine 0.8
Glucose 141 H
Calcium 10.0
Total Bilirubin 0.5
AST 24
ALT 18
Alkaline Phosphatase 119
Vital Signs:
Vital Signs
Temp Pulse Resp BP Pulse Ox
97.9 F 56 16 157/77 97
06/20/25 07:31 06/20/25 07:31 06/20/25 07:31 06/20/25 07:31 06/20/25 07:31
I&O
06/19/25 06/20/25 06/21/25
06:59 06:59 06:59
Intake Total 1080 / 1080
Balance 1080 / 1080
Review of Systems
-
History Source: Patient
All other systems: Reviewed and negative
[2025-06-20 11:15] LABS: Glycohemoglobin (HgbA1c) 6.3 % (4.0-5.6)
[2025-06-20 12:07] LABS: Glucose - Point of Care 147 mg/dl (70-99)
--- NOTE | 2025-06-20 15:04 | CM ---
CM spoke with pt on phone.
Pt resides in a 2SH with family (spouse, daughter and grandchild). Bedroom/bathroom on 2nd floor. [place] on 1st floor. No AD for ambulation. Ind with amb/adl's. + Lab Nurse.
PCP is Henok Mcfadden and pharmacy is [facility].
Reports having a + prescription plan.
No HC or SNF history.
Anticipate no skilled dc needs. Family to transport home when stable.
[2025-06-20 15:20] VITALS: BP 134/68
[2025-06-20 16:37] LABS: Glucose - Point of Care 124 mg/dl (70-99)
--- NOTE | 2025-06-20 16:59 | PTCARENOTE ---
Patient with intermiitent abd pain, nausea improved with sips liquids, did tolerate small amounts of liquid at a time. Received Dilaudid x 1 this am with good results.. No further loose stools . visiting at present .
[2025-06-20] MEDS: LOVENOX 40 MG SC (17:27)
[2025-06-20] MEDS: COREG PO (19:37)
[2025-06-20 21:12] LABS: Glucose - Point of Care 116 mg/dl (70-99)
[2025-06-20] MEDS: CRESTOR 20 MG PO (21:35)
[2025-06-20] MEDS: LANTUS 0.2 UNITS SC (21:36)
[2025-06-20 23:00] VITALS: BP 139/66
[2025-06-21 07:00] VITALS: BP 134/64
[2025-06-21] MEDS: IMDUR (EXTENDED RELEASE) 30 MG PO (07:34)
[2025-06-21] MEDS: PROTONIX IV 40 MG IV (07:35)
[2025-06-21] MEDS: PLAVIX 75 MG PO (07:35)
[2025-06-21] MEDS: COREG 12.5 MG PO (07:35)
[2025-06-21] MEDS: NSS (PRESERVATIVE FREE) 10 ML IV (07:35)
[2025-06-21] MEDS: LOW STRENGTH ASPIRIN 81 MG PO (07:35)
[2025-06-21] MEDS: FEOSOL 325 MG PO (07:35)
[2025-06-21] MEDS: NORVASC 5 MG PO (07:35)
[2025-06-21 07:40] LABS: Glucose - Point of Care 112 mg/dl (70-99)
[2025-06-21] MEDS: NOVOLOG FLEXPEN-LOW RESISTANCE SC ×3 (07:40→16:40)
[2025-06-21 07:54] LABS: Hematocrit 32.9 % (37.0-47.0); Hemoglobin 10.5 g/dL (12.0-16.0); Mean Corp Hgb Conc. 31.9 g/dL (33.0-37.0); Mean Corpuscular Volume 68.8 fL (81.0-99.0); Nucleated Red Blood Cells % 0 %; Platelet Count 277 10^3/uL (130-400); Red Cell Dist. Width 16.7 % (11.5-14.5)
[2025-06-21] MEDS: DILAUDID 0.5 MG IV (10:53)
[2025-06-21] MEDS: COMPAZINE 5 MG IV (10:54)
[2025-06-21 11:34] LABS: Glucose - Point of Care 131 mg/dl (70-99)
--- NOTE | 2025-06-21 12:35 | W.PN.HOSP.TC ---
Today's Communication/Plan
-
advance diet to low residue
possible d/c if tolerates
Assessment / Plan
Assessment / Plan
pt is a 70 year old female
Acute gastroenteritis -still with symptoms of nausea, but diarrhea resolved-- Afebrile--Looks nontoxic--Suspect foodborne illness given timing of onset after eating [place] food. Denies sick contacts, denies other ill family members. Denies
travel--No diarrhea to get any stool samples--Lactic acidosis resolved--CT abdomen/pelvis noted, possible mild colitis but study done without oral contrast
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 Follow-up with Dr. Ngo after discharge.
DM 2 with hyperglycemia -glucose 141 this morning--At home she is on Lantus 26 units at bedtime, Humalog corrective scale, semaglutide 2 mg subcutaneously every week--In the hospital she is on Lantus 20 units at bedtime, will lower corrective scale
to low resistance.
Essential hypertension -stable.
CAD -stable.
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 Hemoglobin stable.
MAHAD
Diverticulosis
Obesity due to excess calories
Full code
Anticipated Discharge: Within 24 hours
Subjective/Interval History
-
Date of Service: June 21, 2025
pt has some nausea and abdominal pain after breakfast this AM--no diarrhea
Objective Data
-
Labs:
Laboratory Results
06/21/25
07:26
WBC 15.5 H
Hgb 10.5 L
Hct 32.9 L
Plt Count 277
Vital Signs:
max temp for 24 hours
06/20/25
15:20
Temp 98.2 F
Vital Signs
Temp Pulse Resp BP Pulse Ox
98 F 55 18 134/64 97
06/21/25 07:00 06/21/25 07:00 06/21/25 07:00 06/21/25 07:00 06/21/25 07:35
I&O
06/20/25 06/21/25 06/22/25
06:59 06:59 06:59
Intake Total 1080 / 1080 550 / 550
Balance 1080 / 1080 550 / 550
Review of Systems
-
All other systems: Reviewed and negative
Physical Exam
-
General: Well Developed, Well Nourished and No Apparent Distress
HEENT: Normocephalic and Atraumatic
Respiratory: Clear to Auscultation; Negative Wheezes or Rhonchi
Cardiac: Regular Rhythm and S1/S2; Negative Murmur
GI: Soft, Nontender, Nondistended and Normal Bowel Sounds
Musculoskeletal: No Clubbing, No Cyanosis and No Edema
Skin: Warm
Neuro: Awake
--- NOTE | 2025-06-21 13:02 | CM ---
Chart reviewed. Poss d/c today if tolerates diet
Met w/ patient bedside, hopeful to go home today. Spouse will transport
IMM verbally reviewed, copy provided, copy on chart
No CM needs at this time
Plan: Home, no needs
[2025-06-21 15:00] VITALS: BP 106/56
[2025-06-21 16:33] LABS: Glucose - Point of Care 149 mg/dl (70-99)
[2025-06-21] MEDS: LOVENOX SC (16:40)
[2025-06-21] MEDS: COREG PO (20:51)
[2025-06-21] MEDS: CRESTOR 20 MG PO (21:33)
[2025-06-21] MEDS: LANTUS 0.2 UNITS SC (21:34)
[2025-06-21 22:16] LABS: Glucose - Point of Care 115 mg/dl (70-99)
[2025-06-21 23:00] VITALS: BP 149/72
[2025-06-22 07:00] VITALS: BP 138/67
[2025-06-22 07:16] LABS: Glucose - Point of Care 122 mg/dl (70-99)
[2025-06-22] MEDS: NOVOLOG FLEXPEN-LOW RESISTANCE SC (09:16)
[2025-06-22] MEDS: LOW STRENGTH ASPIRIN 81 MG PO (09:17)
[2025-06-22] MEDS: FEOSOL 325 MG PO (09:17)
[2025-06-22] MEDS: NORVASC 5 MG PO (09:17)
[2025-06-22] MEDS: IMDUR (EXTENDED RELEASE) 30 MG PO (09:17)
[2025-06-22] MEDS: COREG PO (09:17)
[2025-06-22] MEDS: NSS (PRESERVATIVE FREE) 10 ML IV (09:18)
[2025-06-22] MEDS: PLAVIX 75 MG PO (09:18)
[2025-06-22] MEDS: PROTONIX IV 40 MG IV (09:18)
[2025-06-22 11:30] VITALS: BP 131/76
[2025-06-22 13:01] LABS: Glucose - Point of Care 154 mg/dl (70-99)
[2025-06-22] MEDS: NOVOLOG FLEXPEN-LOW RESISTANCE 1 UNITS SC (13:01)
--- NOTE | 2025-06-22 13:07 | W.PN.HOSP.TC ---
Today's Communication/Plan
-
d/c
Assessment / Plan
Assessment / Plan
pt is a 70 year old female
Acute gastroenteritis -improved and tolerating diet-- Afebrile--Looks nontoxic--Suspect foodborne illness given timing of onset after eating [place] food. Denies sick contacts, denies other ill family members. Denies travel--stool studies
pending--Lactic acidosis resolved--CT abdomen/pelvis noted, possible mild colitis but study done without oral contrast
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 Follow-up with Dr. Ngo after discharge.
DM 2 with hyperglycemia -glucose 141 this morning--At home she is on Lantus 26 units at bedtime, Humalog corrective scale, semaglutide 2 mg subcutaneously every week--In the hospital she is on Lantus 20 units at bedtime, will lower corrective scale
to low resistance.
Essential hypertension -stable.
CAD -stable.
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 Hemoglobin stable.
MAHAD
Diverticulosis
Obesity due to excess calories
Full code
Anticipated Discharge: Today
Subjective/Interval History
-
Date of Service: June 22, 2025
pt tolerating diet
Objective Data
-
Vital Signs:
max temp for 24 hours
06/21/25
23:00
Temp 98.4 F
Vital Signs
Temp Pulse Resp BP Pulse Ox
97.8 F 58 16 131/76 97
06/22/25 11:30 06/22/25 11:30 06/22/25 11:30 06/22/25 11:30 06/22/25 11:30
I&O
06/21/25 06/22/25 06/23/25
06:59 06:59 06:59
Intake Total 550 / 550 840 / 840
Balance 550 / 550 840 / 840
Review of Systems
-
All other systems: Reviewed and negative
Physical Exam
-
General: Well Developed, Well Nourished and No Apparent Distress
HEENT: Normocephalic and Atraumatic
Respiratory: Clear to Auscultation; Negative Wheezes or Rhonchi
Cardiac: Regular Rhythm and S1/S2; Negative Murmur
GI: Soft, Nontender, Nondistended and Normal Bowel Sounds
Musculoskeletal: No Clubbing, No Cyanosis and No Edema
Neuro: Awake and Alert
Psych: Calm
--- NOTE | 2025-06-22 14:19 | CM ---
Patient seen at bedside with physician on . Patient states that she is going home with and no VN or supports recommended by therapy at this time. Patient completed IMM and signed form placed on chart. CM will continue to follow for
discharge planning needs.
Plan; home with no needs anticipated.
[2025-06-22 15:19] VITALS: BP 116/70
--- NOTE | 2025-06-23 07:26 | W.DCSUMMARY ---
Discharge Summary
Discharge Data
Date of Admission: 06/19/25
Date of Discharge: 06/22/25
-
Pending Results: Yes
Additional Pending Results:
stool cultures
Hospital Course
Primary care physician : Henok Mcfadden
Principal Discharge diagnosis : Acute gastroenteritis
Chronic Discharge diagnosis : Right breast intraductal mass excision, type 2 diabetes mellitus with hyperglycemia, essential hypertension, coronary artery disease, anemia of chronic disease due to thalassemia and iron deficiency, obstructive sleep
apnea, obesity
Hospital Course : Patient is a 70-year-old female who had recent surgery for excision of intraductal mass in her breast on June 18, 2025. She felt well following surgery. For dinner, later that day, she had [place] food. Around 11 PM on the
night of admission while lying in bed she developed sharp epigastric abdominal pain. She then had an explosive stool that was somewhat loose but not watery. She then developed nausea and had multiple episodes of emesis over the next 30 to 45
minutes. Pain improved but then returned. Patient was admitted.
Problem #1: Acute gastroenteritis. Patient was admitted and treated symptomatically with IV fluids and antiemetics.. Foodborne illness was suspected. Stool studies are pending. Lactic acidosis resolved. CAT scan of the abdomen and pelvis noted
possibly mild colitis. Patient was markedly improved through her hospitalization. She was tolerating a diet. She has been cleared for discharge.
Problem #2: All other medical issues. These include Right breast intraductal mass excision, type 2 diabetes mellitus with hyperglycemia, essential hypertension, coronary artery disease, anemia of chronic disease due to thalassemia and iron
deficiency, obstructive sleep apnea, obesity. These medical issues were stable during her hospitalization. Medications were continued as able.
Patient is stable for discharge home at this time. If there are any questions regarding this dictation or her hospital stay, please do not hesitate to call. Our office number is [phone].
Time for discharge 31 minutes.
Important imaging findings :
CT SCAN ABDOMEN/PELVIS IMPRESSION:
Limited evaluation of intestinal tract without oral contrast. Suggestion of some mild wall thickening of the transverse and descending colon, limited, decompressed, cannot exclude mild colitis. No intestinal obstruction or free air.
Small bilateral renal simple cysts as well as additional subcentimeter low-attenuation renal lesions too small to characterize.
Discharge Plan
-
Patient Disposition: Home (Routine Discharge)
Discharge Diagnosis/Procedures: Acute gastroenteritis, right breast intraductal mass excision June 18, 2025, type 2 diabetes mellitus with hyperglycemia, essential hypertension, coronary artery disease, anemia of chronic disease, obstructive
sleep apnea, diverticulosis, obesity
Condition: Good
Diet: Low Residue and Diabetic, Carb Controlled
Activity: As tolerated
Driving Restrictions: As prior to admission
Bathing Restrictions: None
Referrals:
Henok Mcfadden MD [Family Provider, [facility]] - in less than 1 week
Prescriptions:
New
oxycodone-acetaminophen 5-325 mg tablet
1 tab PO Q8H PRN (Reason: severe pain) Qty: 7 0RF
Continued
amlodipine 5 MG tablet
5 mg PO DAILY
insulin lispro [Humalog U-100 Insulin] 100 UNIT/ML solution
0 - 15 unit SQ AC
Patient Comments:
*took 12 units at 2000
ergocalciferol (vitamin D2) 50,000 UNITS capsule
50,000 units PO MO
clopidogrel 75 MG tablet
75 mg PO DAILY Qty: 90 3RF
aspirin 81 MG tablet,chewable
81 mg PO DAILY 0RF
ezetimibe 10 MG tablet
10 mg PO DAILY Qty: 90 3RF
calcium carbonate 600 mg calcium (1,500 mg) Tablet
600 mg PO DAILY
insulin glargine [Lantus Solostar U-100 Insulin] 100 unit/mL (3 mL) Insulin Pen
26 unit SC HS
Patient Comments:
*took 20 units last HS at 2300*
Repatha SureClick 140 mg/mL pen injector
140 mg SC Q2W
ferrous sulfate 325 mg (65 mg iron) Tablet
325 mg PO DAILY
isosorbide mononitrate 30 mg Tablet Extended Release 24 Hr
30 mg PO DAILY 30 Days Qty: 30 0RF
carvedilol 12.5 mg Tablet
12.5 mg PO BID
rosuvastatin 20 mg Tablet
20 mg PO HS
Ozempic 2 mg/dose (8 mg/3 mL) Pen Injector
2 mg SC QWEEK
Discharge Orders:
Discharge Patient (As Directed); Ordered 06/22/25
Ordered By: Janet Jones
Discharge Date and Time
Discharge Date/Time: 06/22/25 16:21
Print Language: PAKIST[place]
== END 2025-06-22 16:21 | disposition home or self-care (01) | DRG 392 ==
LOC: 4 WEST ACU 07:05
PROVIDERS: Hospitalist; ADMITTING PHYSICIAN Hospitalist; ATTENDING PHYSICIAN Internal Medicine; EMERGENCY PHYSICIAN Emergency Medicine; FAMILY PHYSICIAN Family Medicine
DX: K52.9 Noninfective gastroenteritis and colitis, unspecified (principal); E87.20 Acidosis, unspecified; A05.9 Bacterial foodborne intoxication, unspecified; I25.10 Atherosclerotic heart disease of native coronary artery without angina pectoris; I10 Essential (primary) hypertension; E11.65 Type 2 diabetes mellitus with hyperglycemia; G47.33 Obstructive sleep apnea (adult) (pediatric); E66.09 Other obesity due to excess calories; D56.9 Thalassemia, unspecified; D63.8 Anemia in other chronic diseases classified elsewhere; D50.9 Iron deficiency anemia, unspecified; K21.9 Gastro-esophageal reflux disease without esophagitis; D72.829 Elevated white blood cell count, unspecified; Z68.33 Body mass index [BMI] 33.0-33.9, adult; Z79.4 Long term (current) use of insulin; Z79.899 Other long term (current) drug therapy
CPT/HCPCS: 36415; 74177; 80053; 81003; 82248; 82306; 82962; 83036; 83605; 83690; 84134; 85025; 85027; 87045; 87046; 87427; 88305; 88307; 93005; 96361; 96365; 96375; 96376; 99284; Q9967